=== PATIENT | female | born 1960 | race Two or more races ===

== ENCOUNTER 2025-06-13 20:12 | Day surgery (SDC) | payer OTHER ==
[2025-06-12 10:33] VITALS: BP 125/75
[~2025-06-13] VITALS: Ht 160 cm; Wt 93.0 kg
[~2025-06-13 20:12] MED LIST: CEFAZOLIN SODIUM 1,000 MG VIAL ONE; CHLORHEXIDINE GLUCONATE 120 ML BOTTLE TOP ONE; SIMVASTATIN5 MG
== END 2025-06-13 22:25 | disposition home or self-care (01) ==
LOC: CIR.AMB 20:12
PROVIDERS: ATTEND Surgery
DX: C50.412 Malignant neoplasm of upper-outer quadrant of left female breast (principal)